=== PATIENT | male | born 1965 | race Caucasian/White ===

== ENCOUNTER → 2018-03-05 | Day surgery (SDC) | payer BC ==
[~2018-03-05] MED LIST: CEFTRIAXONE SOD 1 GM VIAL ONE; DEXAMETHASONE SOD PHOS INJ 4 MG/ML VIAL ONE; FENTANYL CITRATE/PF 100MCG/2 ML INJ ONE; GENTAMICIN 80MG/NS 100 ML 200 ML IV ONE; LEXAPRO20 MG PO; LIDOCAINE HCL 2% LOCAL INJ 5 ML SDV VIAL INJ ONE; MIDAZOLAM HCL 2 MG/2 ML VIAL ONE; ONDANSETRON HCL INJ 2 MG/ML VIAL ONE; PROPOFOL IV EMULSION 10 MG/ML 20 ML VIAL ONE; SEVOFLURANE INHAL SOLN 250 ML PEN BTL ONE; WELLBUTRIN SR150 MG PO
--- NOTE | 2018-03-05 11:13 | Operative Report ---
DATE OF PROCEDURE: March 05, 2018 PREOPERATIVE DIAGNOSES 1. BPH. 2. Rule out carcinoma of the prostate. 3. Abnormal prostatic specific antigen, 12.4. POSTOPERATIVE DIAGNOSES 1. BPH. 2. Rule out carcinoma of the prostate. 3. Abnormal prostatic specific antigen, 12.4. OPERATIONS 1. Transrectal ultrasound of the prostate. 2. Transrectal ultrasound-guided needle biopsies. 3. Cystourethroscopy. ANESTHESIA: General. Mr. Teague is a 52-year-old male who was referred with the chief complaint of lower urinary tract obstructive symptoms and elevated PSA. Rectal exam showed the prostate gland to be about 40-50 with firm to hard nodule at the right base. This patient was placed on the table in the lithotomy position, and was prepped and draped in a sterile manner after satisfactory anesthesia. Transrectal ultrasound of the prostate was performed, and the prostate measured 4.97 x 3.6 x 4.53 with a total volume of 42.52 mm. There was a hypoechoic area at the right base that measured 12 mm x 9 mm. Transrectal ultrasound-guided needle biopsies were obtained from the hypoechoic area, and formed a normal appearing prostate to map it for any multifocal carcinoma. Both seminal vesicles were unremarkable. This patient was then prepped and draped in a sterile manner. A #22.5 cystoscope was used, and cystourethroscopy was performed. It was noted that the urethra was normal. The prostatic urethra was about 3.5 cm, bilobar and occlusive. Cystoscopy was then performed using both right angle and the 4-0 oblique lens. It was noted that the bladder mucosa was normal with no evidence of gross tumor, pathology or any palpable lesions. Both ureteral orifices were seen and were within normal position, configuration and efflux. The bladder wall was mildly trabeculated. The bladder was drained. Cystoscope removed. Plans for this patient is to be discharged home on Cipro 500 mg 1 twice a day for 1 week. Ultracet tablet 1 every 6 hours p.r.n. and was given 20. He is to return to the office in 1 week when at that time results of the biopsy will be back. Job#: [id number] [id number]
== END | disposition home or self-care (01) ==
LOC: OR 07:30
PROVIDERS: ATTEND Specialist
DX: N40.1 Benign prostatic hyperplasia with lower urinary tract symptoms (principal); C61 Malignant neoplasm of prostate; N13.8 Other obstructive and reflux uropathy; N32.89 Other specified disorders of bladder; F17.210 Nicotine dependence, cigarettes, uncomplicated; Z88.6 Allergy status to analgesic agent; Z89.511 Acquired absence of right leg below knee
CPT/HCPCS: 52000; 55700; 76872; 88305; 93005; C1758; J0696; J1100; J1580; J2001; J2250; J2405; 76942